=== PATIENT | female | born 1960 | race Caucasian/White ===

== ENCOUNTER 2017-12-12 19:50 | Emergency (ER) | payer MEDICARE, MEDICAID ==
[2017-12-12 20:23] VITALS: BP 122/77
--- NOTE | 2017-12-12 21:22 | EDM.PDOC ---
ED HPI GENERAL MEDICAL PROBLEM - General Chief Complaint: ENT Problem Stated Complaint: SORE THROAT Time Seen by Provider: 12/12/17 19:59 Source of Information: Reports: Patient, Family, RN Notes Reviewed History Limitations: Reports: No Limitations - History of Present Illness INITIAL COMMENTS - FREE TEXT/NARRATIVE: 57-year-old female presents to the emergency department today with complaint of sore throat, she states she's been ill for about 24 hours. Denies any other symptoms no fever no cough - Related Data Allergies Allergy/AdvReac Type Severity Reaction Status Date / Time No Known Allergies Allergy Verified 12/12/17 20:29 Home Meds: Home Meds Ascorbate Calcium [Vitamin C] 500 mg PO DAILY 02/03/16 [History] Calcium Carbonate/Vitamin D3 [Calcium 600 + Vit D 200] 1 tab PO DAILY 02/03/16 [ History] ClonazePAM [KlonoPIN] 2 mg PO TID 02/03/16 [History] Levothyroxine 75 mcg PO BEDTIME 02/03/16 [History] Multivitamin [Multivitamins] 1 tab PO DAILY 02/03/16 [History] Oxybutynin 5 mg PO BID 02/03/16 [History] Primidone 250 mg PO TID 02/03/16 [History] Vitamin E 400 unit PO BID 02/03/16 [History] Past Medical History HEENT History: Reports: Impaired Vision Other HEENT History: glasses Genitourinary History: Reports: Urinary Incontinence Neurological History: Reports: Seizure Psychiatric History: Reports: Anxiety, Developmental Delay Endocrine/Metabolic History: Reports: Hypothyroidism - Past Surgical History GI Surgical History: Reports: Cholecystectomy Social & Family History - Tobacco Use Smoking Status *Q: Never Smoker - Caffeine Use Caffeine Use: Reports: Soda - Recreational Drug Use Recreational Drug Use: No ED ROS ENT - Review of Systems Review Of Systems: See Below Constitutional: Denies: Fever, Chills HEENT: Reports: Throat Pain Respiratory: Reports: No Symptoms Cardiovascular: Reports: No Symptoms GI/Abdominal: Reports: No Symptoms ED EXAM, ENT - Physical Exam Exam: See Below Exam Limited By: No Limitations General Appearance: Alert, WD/WN, No Apparent Distress Ears: Normal External Exam, Normal Canal, Hearing Grossly Normal, Normal TMs Nose: Normal Inspection, Normal Mucousa, No Blood Mouth/Throat: Normal Inspection, Normal Gums, Normal Lips, Normal Oropharynx, Normal Teeth Head: Atraumatic, Normocephalic Neck: Normal Inspection, Supple, Non-Tender, Full Range of Motion Respiratory/Chest: No Respiratory Distress, Lungs Clear, Normal Breath Sounds, No Accessory Muscle Use Cardiovascular: Regular Rate, Rhythm, No Murmur Course - Vital Signs Last Recorded V/S: Last Vital Signs Temp 97.3 F 12/12/17 20:25 Pulse 98 12/12/17 20:25 Resp 16 12/12/17 20:25 BP 122/77 12/12/17 20:25 Pulse Ox 94 L 12/12/17 20:25 - Orders/Labs/Meds Orders: Active Orders 24 hr Category Date Time Status CULTURE STREP A CONFIRMATION [RM] Stat Lab 12/12/17 20:25 Results STREP SCRN A RAPID W CULT CONF [RM] Stat Lab 12/12/17 20:25 Ordered Departure - Departure Time of Disposition: 21:21 Disposition: Home, Self-Care 01 Condition: Good Clinical Impression: Acute pharyngitis Qualifiers: Pharyngitis/tonsillitis etiology: unspecified etiology Qualified Code(s): J02.9 - Acute pharyngitis, unspecified - Discharge Information Referrals: Juan Daniel Miller MD [Primary Care Provider] - Additional Instructions: Recommend symptomatic care, Please followup with your primary care provider in 3-5 days if not better, please call return to the emergency department with worsening of symptoms. - My Orders Last 24 Hours: My Active Orders 12/12/17 20:25 CULTURE STREP A CONFIRMATION [RM] Stat STREP SCRN A RAPID W CULT CONF [RM] Stat - Assessment/Plan Last 24 Hours: My Active Orders 12/12/17 20:25 CULTURE STREP A CONFIRMATION [RM] Stat STREP SCRN A RAPID W CULT CONF [RM] Stat Plan: Assessment Acuity = acute Site and laterality = pharyngitis Etiology = probable viral Manifestations = none Location of injury = Home Lab values = rapid strep is negative cultures pending Plan Recommend symptomatic care at this time, follow-up with primary care 3-5 days if not better, will contact the culture becomes positive This note was dictated using Arpeggi recognition software please call with any questions on syntax or rebecca.
== END 2017-12-12 21:34 | disposition home or self-care (01) ==
LOC: JP.ED 19:50
DX: J02.9 Acute pharyngitis, unspecified (principal); E03.9 Hypothyroidism, unspecified; Z79.899 Other long term (current) drug therapy
CPT/HCPCS: 87081; 87430; 99283

== ENCOUNTER 2019-06-02 06:47 | Day surgery (SDC) | payer MEDICARE, MEDICAID ==
[2019-06-02] MEDS ORDERED: Lactated Ringers 1,000 ML IV SCH (08:30)
[2019-06-02] MEDS ORDERED: Propofol 200 MG/20 ML SDV ONE ×2 (08:39→09:40)
[2019-06-02] MEDS ORDERED: fentaNYL 100 MCG/2 ML SDV ONE (08:39)
[2019-06-02] MEDS ORDERED: Midazolam 1 MG/ML 2 ML SDV ONE (08:39)
[2019-06-02 10:45] VITALS: PULSE 78
[2019-06-02 11:29] VITALS: BP 103/65
--- NOTE | 2019-06-03 08:46 | OR ---
DATE OF PROCEDURE: 06/02/2019 SURGEON: Nick Laughlin MD PREOPERATIVE DIAGNOSIS: Chronic nausea, colon cancer screening. POSTOPERATIVE DIAGNOSES: Gastroesophageal reflux disease; chronic nausea, etiology unknown; and hepatic flexure polyp. PROCEDURES PERFORMED: Esophagogastroduodenoscopy with biopsy of gastroesophageal junction and colonoscopy to the cecum with biopsy resection of small hepatic flexure polyp. ANESTHESIA: IV anesthesia with monitored anesthesia care. INDICATION: This 59-year-old white female is referred for upper and lower endoscopy. Indication for upper endoscopy is chronic nausea and indication for colonoscopy is colon cancer screening. She does not think she has ever had a colonoscopic exam. I counseled her for upper and lower endoscopy with possible biopsy and/or polypectomy, including risks and alternatives, and she gave her informed consent to proceed. DESCRIPTION OF PROCEDURE: The patient was placed in the left lateral decubitus position. IV anesthesia was administered by the anesthesia service. Time-out was held. The flexible video Olympus upper endoscope was passed through her mouth, down her esophagus, and into her stomach. The scope was easily passed through the pylorus and into the duodenum, reaching its third portion. The scope was then slowly withdrawn, examining the mucosa throughout. The duodenal mucosa appeared unremarkable. The scope was brought up through the pylorus. The antrum appeared unremarkable. The scope was retroflexed. The proximal stomach appeared unremarkable. The scope was straightened and brought up to the GE junction. This was abnormal in that the Z-line was not straight. There were fingers of gastric mucosa going proximally up into the esophagus. We obtained multiple, totalling at least 6, biopsies of the gastroesophageal junction. The scope was then brought up through the remainder of the esophagus, which otherwise appeared unremarkable and it was removed. Next, a rectal exam was performed, which was unremarkable. The flexible video Olympus colonoscope was introduced through her anus, up her rectum and out her colon, all the way to the cecum. En route, at the hepatic flexure, we saw a small polyp, which was removed with a couple of bites of biopsy forceps. Once the cecum was reached, the scope was slowly withdrawn examining the mucosa throughout. No additional mucosal abnormalities were noted. The scope was retroflexed in the rectum with the distal rectum appearing unremarkable. The scope was straightened and removed. She tolerated the procedure well. Nick Laughlin MD /[id number]
== END 2019-06-02 11:00 | disposition home or self-care (01) ==
LOC: JP.SDS 06:47
PROVIDERS: ATTEND Surgery
DX: Z12.11 Encounter for screening for malignant neoplasm of colon (principal); D12.3 Benign neoplasm of transverse colon; K21.0 Gastro-esophageal reflux disease with esophagitis; R11.0 Nausea; K22.10 Ulcer of esophagus without bleeding; E03.9 Hypothyroidism, unspecified
CPT/HCPCS: 43239; 45380; J2250; J2704; J3010; J7120; 88305

== ENCOUNTER 2020-07-19 16:03 | Emergency (ER) | payer MEDICARE, MEDICAID ==
[2020-07-19 16:20] VITALS: BP 127/77; PULSE 98
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
== END 2020-07-19 16:48 | disposition home or self-care (01) ==
LOC: JP.ED 16:03
DX: S01.01XA Laceration without foreign body of scalp, initial encounter (principal); F41.9 Anxiety disorder, unspecified; E03.9 Hypothyroidism, unspecified; Z90.49 Acquired absence of other specified parts of digestive tract; Z79.899 Other long term (current) drug therapy; W01.198A Fall on same level from slipping, tripping and stumbling with subsequent striking against other object, initial encounter; Y92.410 Unspecified street and highway as the place of occurrence of the external cause
CPT/HCPCS: 12002; 99283-25

== ENCOUNTER 2025-01-09 06:58 | Day surgery (SDC) | payer MEDICARE, MEDICAID ==
[2025-01-09] MEDS ORDERED: Propofol 200 MG/20 ML SDV ONE ×2 (07:07→08:15)
[2025-01-09] MEDS ORDERED: Midazolam 1 MG/ML 2 ML SDV ONE (07:07)
[2025-01-09] MEDS ORDERED: fentaNYL 100 MCG/2 ML SDV ONE (07:07)
[2025-01-09] MEDS: Lactated Ringers 1,000 ML IV SCH (07:30)
[2025-01-09 09:58] VITALS: BP 94/58; PULSE 63
== END 2025-01-09 09:20 | disposition home or self-care (01) ==
LOC: JP.SDS 06:58
PROVIDERS: ATTEND Family Medicine
DX: Z12.11 Encounter for screening for malignant neoplasm of colon (principal); D12.2 Benign neoplasm of ascending colon; D12.3 Benign neoplasm of transverse colon; Z86.0101 Personal history of adenomatous and serrated colon polyps
CPT/HCPCS: 00811; 45380; 45385; 88305; J2250; J2704; J3010; J7120